=== PATIENT | male | born 2000 | race Caucasian/White ===

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

== ENCOUNTER 2019-04-09 18:31 | Emergency (ER) | payer BC ==
[~2019-04-09] VITALS: Ht 177.8 cm; Wt 100.0 kg
[~2019-04-09 18:31] MED LIST: NORC1TAB7 PO
[2019-04-09] MEDS ORDERED: IBUPROFEN 600 MG TAB PO ONE (19:30)
[2019-04-09] MEDS ORDERED: IBUP-1022 PO (19:40)
[2019-04-09 19:52] VITALS: BP 118/59
--- NOTE | 2019-04-10 09:45 | REP ---
RIGHT KNEE, COMPLETE: 04/09/2019 COMPARISON: MRI 02/02/2016. CLINICAL HISTORY: Trauma, knee pain. FINDINGS: Five views are provided. I suspect a small suprapatellar effusion on the lateral and sunrise views. No patellar subluxation fracture or dislocation. No narrowing of the medial or lateral compartments. No degenerative spurring. I see no focal bone lesion or avulsion. No loose body or osteochondral defect. Proximal tibiofibular articulation normal. IMPRESSION: 1. Suspect small joint effusion without visible or displaced fracture, avulsion, loose body or osteochondral lesion. Electronically Signed by Leonel Gatica MD 04/10/2019 11:14 A
== END 2019-04-09 19:53 | disposition home or self-care (01) ==
LOC: M ED 18:31
DX: M25.461 Effusion, right knee (principal); S76.101A Unspecified injury of right quadriceps muscle, fascia and tendon, initial encounter; X58.XXXA Exposure to other specified factors, initial encounter; Y92.89 Other specified places as the place of occurrence of the external cause; F17.210 Nicotine dependence, cigarettes, uncomplicated

== ENCOUNTER → 2019-07-08 | Outpatient (CLI) | payer BC ==
[~2019-07-08] MED LIST changes: +IBUP-1022 PO
--- NOTE | 2019-07-08 19:22 | REP ---
Four views right foot and four views right ankle: 07/08/2019. Indication: Right foot and ankle pain. Comparison: None. Findings: There is no acute fracture, subluxation or dislocation. No erosive lesions of the visualized bones are present. There is no significant joint effusion. Impression: No acute fracture or additional acute osseous injuries of the right foot or ankle. Electronically Signed by Tra Fu DO 07/08/2019 07:13 P
== END ==
LOC: M WUC 18:15
PROVIDERS: ATTEND Physician Assistant
DX: M25.571 Pain in right ankle and joints of right foot (principal)

== ENCOUNTER → 2020-09-16 | Outpatient (CLI) | payer SELFPAY | LOC: M LABSMTC 10:51 | PROVIDERS: ATTEND Pediatrics | DX: Z20.822 Contact with and (suspected) exposure to COVID-19 (principal) ==

== ENCOUNTER 2020-10-16 11:10 | Emergency (ER) | payer BC ==
[~2020-10-16] VITALS: Ht 177.8 cm; Wt 100.0 kg
--- OUTSIDE RECORDS SUMMARY | 2020-10-16 11:17 | CCD ---
Author Author [facility] Address Unknown Phone Unavailable Support Name Relationship Address Phone Cesario RITTER Next Of Kin [address] [place] [address] UE Next Of Kin Unknown Unavailable KYLER RITTER Next Of Kin [address] [place] [address] Cherrie RITTER Next Of Kin [address] [place] [address] Re-disclosure Warning The records that you are about to access may contain information from federally-assisted alcohol or drug abuse programs. If such information is present, then the following federally mandated warning applies: This information has been disclosed to you from records protected by federal confidentiality rules (42 CFR part 2). The federal rules prohibit you from making any further disclosure of this information unless further disclosure is expressly permitted by the written consent of the person to whom it pertains or as otherwise permitted by 42 CFR part 2. A general authorization for the release of medical or other information is NOT sufficient for this purpose. The Federal rules restrict any use of the information to criminally investigate or prosecute any alcohol or drug abuse patient.The records that you are about to access may contain highly sensitive health information, the redisclosure of which is protected by Article 27-F of the [facility] Public Health law. If you continue you may have access to information: Regarding HIV / AIDS; Provided by facilities licensed or operated by the [facility] Office of Mental Health; or Provided by the [facility] Office for People With Developmental Disabilities. If such information is present, then the following [facility] mandated warning applies: This information has been disclosed to you from confidential records which are protected by state law. State law prohibits you from making any further disclosure of this information without the specific written consent of the person to whom it pertains, or as otherwise permitted by law. Any unauthorized further disclosure in violation of state law may result in a fine or skilled nursing sentence or both. A general authorization for the release of medical or other information is NOT sufficient authorization for further disc losure. Family History Family Member Name Family Member Gender Family Member Status Date o f Status Description Data Source(s) Unknown Unknown Problem MEDENT ([facility]) Unknown Male Problem MEDENT ([facility]) Insurance Providers Payer name Policy type / Coverage type Policy ID Covered republican ID Covered republican's relationship to chen Policy Chen Plan Information [employer] [place]/307 [id number] MO2 [id number] SELF PAY ONLY [id number] SP [id number] [employer] [place]/307 [id number] MO2 [id number] [employer]CELL[employer] BCBS B [id number] O VYA [id number] [employer] BCBS B [id number] O VYS [id number] [employer] [place]/307 [id number] FA2 [id number] BCBS/[employer] Commercial [id number] Family Dependent [id number] BC[employer] Commercial [id number] Family Dependent [id number] [employer] Commercial [id number] Family Depen dent [id number] BC[employer] Commercial [id number] Family Dependent [id number] [employer] [id number] SP [id number] [employer] 00 SP 00 HMO BLUE [id number] SP [id number] Results ID Date Data Source [id number] 09/17/2020 12:00:00 AM EST [facility] Name Value Range Interpretation Code Description Data Meg rce(s) Supporting Document(s) SARS-CoV-2 (COVID-19) RNA [Presence] in Respiratory specimen by TIO with probe detection Not Detected [facility] This lab was ordered by [facility] and reported by [employer]. Procedure
--- NOTE | 2020-10-16 11:50 | REP ---
INDICATION: fall injury. COMPARISON: None. TECHNIQUE: Four views of the left hand are obtained. FINDINGS: Four views of the left hand demonstrate a boxer's fracture of the distal end of the 5th metacarpal with apex dorsal angulation. No displacement.. . No opaque foreign body noted. IMPRESSION: Boxer's fracture distal end of the 5th metacarpal with apex dorsal angulation and overlying soft tissue swelling. <Electronically signed by Jonathan Godoy > 10/16/20 1859
[2020-10-16] MEDS ORDERED: PERCOCET 5MG/325MG TAB PO ONE (12:15)
--- OUTSIDE RECORDS SUMMARY | 2020-10-16 12:17 | CCD ---
Author Author [facility] Address Unknown Phone Unavailable Support Name Relationship Address Phone KFCWATN Next Of Kin [address] [place] [address] Cesario RITTER Next Of Kin [address] [place] [address] UE Next Of Kin Unknown Unavailable KYLER RITTER Next Of Kin [address] [place] [address] Cherrie RITTER Next Of Kin [address] [place] [address] Re-disclosure Warning The records that you are [...] is protected by Article 27-F of the [place] Public Health law. If you continue you may have access to information: Regarding HIV / AIDS; Provided by facilities licensed or operated by the [facility] Office of Mental Health; or Provided by the [facility] Office for People With Developmental Disabilities. If such information is present, then the following [facility] mandated warning applies: This information has been [...] law may result in a fine or penitentiary sentence or both. A general authorization for the release of medical or other information is NOT sufficient authorization for further disc losure. Family History Family Member Name Family Member Gender Family Member Status Date o f Status Description Data Source(s) Unknown Unknown Problem MEDENT ([facility]) Unknown Male Problem [facility] ([facility]) Insurance Providers Payer name Policy type / Coverage type Policy ID Covered alliance party ID Covered alliance party's relationship to chen Policy Chen Plan Information [employer] [place]/307 [id number] MO2 [id number] SELF PAY ONLY [id number] SP [id number] [employer] [place] 302/307 [id number] MO2 [id number] EXCELLUS BCBS B [id number] O VYA [id number] [employer]LLUS BCBS B [id number] O VYS [id number] [employer] [place]/307 [id number] FA2 [id number] BC[employer] [id number] Family Dependent [id number] BC[employer] [id number] Family Dependent [id number] [employer] Commercial [id number] Family Depen dent [id number] BC[employer] [id number] Family Dependent [id number] [employer] [id number] SP [id number] [employer] 00 SP 00 HMO BLUE [id number] SP [id number] Results ID Date Data Source [id number] 09/17/2020 12:00:00 AM EST [facility] Name Value Range Interpretation Code Description Data Meg rce(s) Supporting Document(s) SARS-CoV-2 (COVID-19) RNA [Presence] in Respiratory specimen by TIO with probe detection Not Detected [facility] This lab was ordered by [facility] and reported by [employer]. Procedure
[2020-10-16] MEDS ORDERED: HYDR-3713 PO (12:24)
[2020-10-16 12:46] VITALS: BP 156/77
== END 2020-10-16 12:50 | disposition home or self-care (01) ==
LOC: M ED 11:10
DX: S62.307A Unspecified fracture of fifth metacarpal bone, left hand, initial encounter for closed fracture (principal); W01.10XA Fall on same level from slipping, tripping and stumbling with subsequent striking against unspecified object, initial encounter; Y92.018 Other place in single-family (private) house as the place of occurrence of the external cause; F17.210 Nicotine dependence, cigarettes, uncomplicated

== ENCOUNTER 2022-07-21 02:44 | Emergency (ER) | payer BC ==
[~2022-07-21] VITALS: Ht 180.3 cm; Wt 109.1 kg
[~2022-07-21 02:44] MED LIST changes: +HYDR-3713 PO
[2022-07-21 02:52] VITALS: BP 191/91
== END 2022-07-21 03:45 | disposition left against medical advice (07) ==
LOC: EDBD 02:44 → M ED 02:44
DX: Z53.21 Procedure and treatment not carried out due to patient leaving prior to being seen by health care provider (principal)

== ENCOUNTER 2024-03-05 17:52 | Inpatient (IN) | payer OTHER ==
[~2024-03-05] VITALS: Ht 177.8 cm; Wt 113.5 kg
[2024-03-05] MEDS: ONDANSETRON 4MG 2ML VIAL IV ONE (18:36)
[2024-03-05] MEDS: NS 1,000 ML IV ONE (18:36)
[2024-03-05 18:51] LABS: BASO # 0.1 10^3/uL (0.0-0.2); BASO % 0.5 % (0.0-1.0); EOS # 0.1 10^3/uL (0.0-0.5); EOS % 0.5 % (0.0-3.0); HEMATOCRIT 50.3 % (42.0-52.0); HEMOGLOBIN 18.1 g/dl (13.5-17.5); LYMPH # 1.6 10^3/uL (1.5-5.0); LYMPH % 5.9 % (24.0-44.0); MEAN CORPUSCULAR HEMOGLOBIN 31.5 pg (27.0-33.0); MEAN CORPUSCULAR VOLUME 87.5 fl (80.0-96.0); MONO # 1.4 10^3/uL (0.0-0.8); MONO % 5.2 % (2.0-8.0); NEUTROPHILS # 22.9 10^3/uL (1.5-8.5); PLATELET COUNT, AUTOMATED 419 10^3/uL (150-450); RED BLOOD COUNT 5.75 10^6/uL (4.30-6.10); WHITE BLOOD COUNT 26.4 10^3/uL (4.0-10.0)
[2024-03-05 19:06] LABS: CK-MB VALUE MASS 1.2 NG/ML (<3.6); LIPASE 38 U/L (12-53)
[2024-03-05 19:08] LABS: ALKALINE PHOSPHATASE 72 U/L (46-116); ALT/SGPT 65 U/L (7.0-40); AST/SGOT 30 U/L (<34); BILIRUBIN,DIRECT 0.2 MG/DL (<0.4); BILIRUBIN,TOTAL 0.8 MG/DL (0.3-1.2); MAGNESIUM LEVEL 1.8 MG/DL (1.8-2.4); TOTAL PROTEIN 8.8 G/DL (5.7-8.2)
[2024-03-05 19:10] LABS: THYROID STIMULATING HORMONE 3.508 uIU/ML (0.55-4.78)
[2024-03-05 19:14] LABS: CPK CREATINE PHOSPHOKINASE 244 U/L (46-171); MB/CK RELATIVE INDEX 0.49 (< OR =4)
[2024-03-05] MEDS ORDERED: ISOVUE-370 76% 100ML VIAL As Ordered ONE (19:32)
[2024-03-05] MEDS: PIPERACILLIN/TAZOBACTAM SOD 3.375 GM in D5W MINI-BAG PLUS 50 ML IV ONE (19:41)
[2024-03-05] MEDS: NS 2,450 ML in IV 1 EA IV ONE (19:41)
[2024-03-05] MEDS: DICYCLOMINE INJ 20MG/2ML IM ONE (21:05)
[2024-03-05] MEDS ORDERED: HOME MED LIST COMPLETE! XX SCH (22:05)
[2024-03-05] MEDS: KETOROLAC 30 MG/ML 1ML VIAL IV ONE (22:10)
[2024-03-05] MEDS ORDERED: ACETAMINOPHEN TAB 650MG DOSE (2X325MG) PO PRN (22:15)
[2024-03-05] MEDS: LR 1,000 ML IV SCH (23:29)
[2024-03-05] MEDS ORDERED: ONDANSETRON 4MG 2ML VIAL IV PRN (23:40)
[2024-03-06] MEDS: MORPHINE 4 MG/ML 1ML VIAL IV PRN (00:06)
[2024-03-06 00:55] VITALS: BP 138/80; TEMP 97.3; O2SAT 98
[2024-03-06 04:00] VITALS: BP 118/61; TEMP 97.5; O2SAT 97
[2024-03-06] MEDS: cefTRIAXone SOD 2 GM in D5W MINI-BAG PLUS 50 ML IV SCH (06:18)
[2024-03-06 06:27] LABS: HEMATOCRIT 40.7 % (42.0-52.0); MEAN CORPUSCULAR HEMOGLOBIN 30.8 pg (27.0-33.0); MEAN CORPUSCULAR HGB CONC 34.2 g/dl (32.0-36.5); MEAN CORPUSCULAR VOLUME 90.2 fl (80.0-96.0); RED BLOOD COUNT 4.51 10^6/uL (4.30-6.10); WHITE BLOOD COUNT 8.8 10^3/uL (4.0-10.0)
[2024-03-06 06:38] LABS: HEMOGLOBIN 13.9 g/dl (13.5-17.5); PLATELET COUNT, AUTOMATED 262 10^3/uL (150-450)
[2024-03-06 06:47] LABS: ALBUMIN 3.4 G/DL (3.2-5.2); ALKALINE PHOSPHATASE 46 U/L (46-116); ALT/SGPT 40 U/L (7.0-40); AST/SGOT 17 U/L (<34); BILIRUBIN,TOTAL 0.9 MG/DL (0.3-1.2); BLOOD UREA NITROGEN 15 MG/DL (9-23); CALCIUM LEVEL 8.7 MG/DL (8.5-10.1); CARBON DIOXIDE LEVEL 23 MMOL/L (20-31); CHLORIDE LEVEL 111 MMOL/L (98-107); CREATININE FOR GFR 1.03 MG/DL (0.70-1.30); GLOMERULAR FILTRATION RATE > 60.0 (>60); GLUCOSE, FASTING 94 MG/DL (60-100); MAGNESIUM LEVEL 1.9 MG/DL (1.8-2.4); POTASSIUM SERUM 4.2 MMOL/L (3.5-5.1); SODIUM LEVEL 140 MMOL/L (136-145)
[2024-03-06] MEDS ORDERED: PERCOCET 5MG/325MG TAB PO PRN (08:05)
[2024-03-06 12:00] VITALS: BP 114/64; TEMP 97.5; O2SAT 96
[2024-03-06] MEDS: PERCOCET 5MG/325MG TAB PO PRN (12:20)
[2024-03-06 20:00] VITALS: BP 140/91; TEMP 97.3; O2SAT 98
[2024-03-07 04:30] VITALS: BP 128/83; TEMP 96.8; O2SAT 98
[2024-03-07 06:13] LABS: HEMATOCRIT 36.8 % (42.0-52.0); HEMOGLOBIN 12.7 g/dl (13.5-17.5); MEAN CORPUSCULAR HEMOGLOBIN 31.1 pg (27.0-33.0); MEAN CORPUSCULAR HGB CONC 34.5 g/dl (32.0-36.5); MEAN CORPUSCULAR VOLUME 90.2 fl (80.0-96.0); PLATELET COUNT, AUTOMATED 210 10^3/uL (150-450); RED BLOOD COUNT 4.08 10^6/uL (4.30-6.10); WHITE BLOOD COUNT 7.7 10^3/uL (4.0-10.0)
[2024-03-07 06:39] LABS: ALBUMIN 3.1 G/DL (3.2-5.2); ALKALINE PHOSPHATASE 42 U/L (46-116); ALT/SGPT 35 U/L (7.0-40); AST/SGOT 10 U/L (<34); BILIRUBIN,TOTAL 0.4 MG/DL (0.3-1.2); BLOOD UREA NITROGEN 8 MG/DL (9-23); CALCIUM LEVEL 8.8 MG/DL (8.5-10.1); CARBON DIOXIDE LEVEL 25 MMOL/L (20-31); CHLORIDE LEVEL 110 MMOL/L (98-107); CREATININE FOR GFR 0.96 MG/DL (0.70-1.30); GLOMERULAR FILTRATION RATE > 60.0 (>60); GLUCOSE, FASTING 95 MG/DL (60-100); POTASSIUM SERUM 3.9 MMOL/L (3.5-5.1); SODIUM LEVEL 141 MMOL/L (136-145); TOTAL PROTEIN 5.7 G/DL (5.7-8.2)
[2024-03-07] MEDS ORDERED: PROB250C PO (11:06)
[2024-03-07] MEDS ORDERED: CIPR250T3 PO (11:06)
[2024-03-07] MEDS ORDERED: ACET1TAB55 PO (11:06)
[2024-03-07] MEDS ORDERED: METR-265 PO (11:06)
[2024-03-07] MEDS ORDERED: PERCOCET PO (11:06)
[2024-03-07 12:00] VITALS: BP 126/83; TEMP 97.5; O2SAT 98
== END 2024-03-07 12:46 | disposition home or self-care (01) | DRG 392 ==
LOC: M ED 17:52 → M ED INP 22:12 → M MSPAV 03-06 00:55
PROVIDERS: ADMIT Internal Medicine; ATTEND Internal Medicine
DX: K52.9 Noninfective gastroenteritis and colitis, unspecified (principal); F17.210 Nicotine dependence, cigarettes, uncomplicated; R03.0 Elevated blood-pressure reading, without diagnosis of hypertension